=== PATIENT | female | born 2000 | race Caucasian/White ===

== ENCOUNTER 2022-10-04 00:08 | Emergency (ER) | payer OTHER, SELFPAY ==
[2022-10-04 00:11] VITALS: BP 151/85; PULSE 121; RESP 20; TEMP 36.1; O2SAT 100
[2022-10-04] MEDS: ONDANSETRON INJ 4 MG/2 ML VIAL IV PUSH (00:39)
[2022-10-04] MEDS: FAMOTIDINE 20 MG/2 ML VIAL IV PUSH (00:39)
[2022-10-04] MEDS: SODIUM CHLORIDE 0.9% IV 2,000 ML 999 ML IV CONT (00:40)
--- NOTE | 2022-10-04 00:56 | ED.GENADULT ---
HPI - General Adult General Chief complaint: Nausea/Vomiting/Diarrhea Stated complaint: vomiting Time Seen by Provider: 10/04/22 00:17 History of Present Illness HPI narrative: This is a 21-year-old female presenting ED with a chief complaint of nausea vomiting diarrhea. Patient was doing well throughout the day and then acutely at 9:00 p.m. she started to have profuse episodes of nausea vomiting diarrhea. She also has some left upper quadrant abdominal pain that she describes as a burning pain that is nonradiating, 8/10 intensity and constant. She has never experienced pain like this before there are no exacerbating or alleviating factors. Is not associated with fever, chills chest pain difficulty breathing or urinary symptoms. 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 Her last menstrual period was on the . Related Data Allergies Allergy/AdvReac Type Severity Reaction Status Date / Time No Known Allergies Allergy Verified 10/04/22 00:08 [facility] Past Medical History Medical History Migraines Social History Social History Social History: Drinks alcohol occasionally, denies tobacco drug use. Exam Narrative: APPEARANCE: No apparent distress. Patient is pleasant polite during the interview. Head: atraumatic. EYES: EOMI, NOSE: Atraumatic NECK: Trachea midline RESPIRATORY: No increased rate of breathing , clear to auscultation CARDIOVASCULAR: RRR, no peripheral edema ABDOMINAL: Mild tenderness in the epigastric area and left lower quadrant but soft with no guarding or rebound. MUSCULOSKELETAl: No obvious deformities NEURO: Alert. Moving 4/4 extremities SKIN:: Warm, dry. Normal color PSYCHIATRIC: Normal affect Course Vital Signs Vital signs: Vital Signs Temperature 97.0 F L 10/04/22 00:11 Pulse Rate 121 H 10/04/22 00:11 Respiratory Rate 20 10/04/22 00:11 Blood Pressure 151/85 H 10/04/22 00:11 Pulse Oximetry 100 10/04/22 00:11 Oxygen Delivery Room Air 10/04/22 00:11 Temperature 99.2 F 10/04/22 03:03 Pulse Rate 100 10/04/22 04:30 Respiratory Rate 19 10/04/22 04:30 Blood Pressure 123/74 10/04/22 04:30 Pulse Oximetry 96 10/04/22 04:30 Oxygen Delivery Room Air 10/04/22 00:11 Medical Decision Making MDM Narrative Medical decision making narrative: -Presentation: 21-year-old female presenting with acute onset nausea vomiting diarrhea -DDX includes but is not limited to: gastroenteritis, UTI, viral syndrome -Co-morbidities complicating care: migraines -Social determinants of health: patient lives alone, works as an nutrition technician -External Chart Review: none -Hx from independent Sources: none -Discussion of Management/Consultants: none -Independent interpretation of studies: White count was elevated at 15. The rest of her lab work was within normal limits. Dx tests considered but not ordered: CT abdomen pelvis -abdomen is benign. Patient's findings are consistent with gastroenteritis. -Procedures: none -Interventions: 2 L normal saline, Zofran, Pepcid, Compazine, Tylenol -Shared decision making / Disposition: after rehydration and antiemetics the patient was feeling better. She will be discharged home. - ZofranRX Vital Signs Vital Signs: Vital Signs Temperature 97.0 F L 10/04/22 00:11 Pulse Rate 121 H 10/04/22 00:11 Respiratory Rate 20 10/04/22 00:11 Blood Pressure 151/85 H 10/04/22 00:11 Pulse Oximetry 100 10/04/22 00:11 Oxygen Delivery Room Air 10/04/22 00:11 Temperature 99.2 F 10/04/22 03:03 Pulse Rate 100 10/04/22 04:30 Respiratory Rate 19 10/04/22 04:30 Blood Pressure 123/74 10/04/22 04:30 Pulse Oximetry 96 10/04/22 04:30 Oxygen Delivery Room Air 10/04/22 00:11 Lab Data 10/04/22 00:39 10/04/22 00:39 Labs: Lab Results 10/04/22
[2022-10-04 00:57] LABS: Basophils Absolute Auto 0.1 K/mm3 (0.0-0.1); Basophils Percent Auto 0.3 % (0.2-1.2); Eosinophils Absolute Auto 0.1 K/mm3 (0-0.3); Eosinophils Percent Auto 0.7 % (0-4.4); Hematocrit 44.9 % (37.0-47.0); Hemoglobin 15.1 g/dL (12.0-15.0); Immature Granulocyte Absolute 0.06 K/mm3 (0.00-0.031); Immature Granulocyte Percent A 0.4 % (0-0.5); Lymphocytes Absolute Auto 2.07 K/mm3 (0.9-3.2); Lymphocytes Percent Auto 13.6 % (18.3-44.2); Mean Corpuscular HGB Conc 33.6 g/dl (32-36); Mean Corpuscular Volume 89.1 fl (80-100); Mean Platelet Volume 10.2 fl (7.4-10.4); Monocytes Absolute Auto 0.6 K/mm3 (0.1-0.6); Monocytes Percent Auto 3.9 % (2.6-8.5); Neutrophils Absolute Auto 12.3 K/mm3 (1.3-6.7); Neutrophils Percent Auto 81.1 % (45.5-73.1); Platelet Count Result 293 k/mm3 (150-375); Red Blood Count 5.04 M/mm3 (4.2-5.4); Red Cell Distribution Width 12.1 % (11.5-14.5); White Blood Count 15.2 K/mm3 (4.5-10.0)
[2022-10-04 01:19] LABS: Alanine Aminotransferase 25 U/L (6-35); Albumin Level 5.1 g/dL (3.5-5.1); Alkaline Phosphatase 116 U/L (38-126); Anion Gap 11 mmol/L (8-16); Aspartate Amino Transferase 31 U/L (14-36); Bilirubin,Total 0.7 mg/dL (0.2-1.3); Blood Urea Nitrogen 13 mg/dL (7-17); Calcium 9.5 mg/dL (8.4-10.2); Carbon Dioxide 26 mmol/L (22-30); Chloride 100 mmol/L (98-107); Estimated CRCL calculation 109 ml/min; Estimated Glomerular Filt Rate > 60; Glucose 143 mg/dL (65-110); Lipase 76 U/L (23-300); Magnesium 1.9 mg/dL (1.6-2.3); Potassium 3.6 mmol/L (3.4-5.0); Sodium 137 mmol/L (137-145)
[2022-10-04 01:51] VITALS: BP 112/69; PULSE 100; RESP 14; O2SAT 97
--- NOTE | 2022-10-04 02:31 | PC.NURSE ---
pt. blood specimen rejected multiple times via lab. okayed no blood work needed.
[2022-10-04] MEDS: PROCHLORPERAZINE EDISYLATE 10 MG/2 ML VIAL IV PUSH (02:40)
[2022-10-04 03:03] VITALS: BP 100/50; PULSE 98; RESP 16; TEMP 37.3; O2SAT 100
[2022-10-04 04:30] VITALS: BP 123/74; PULSE 100; RESP 19; O2SAT 96
== END 2022-10-04 04:30 | disposition home or self-care (01) ==
PROVIDERS: Emergency Provider Emergency Medicine
DX: K52.9 Noninfective gastroenteritis and colitis, unspecified (principal)
CPT/HCPCS: 36415; 80053; 83690; 83735; 85025; 96361; 96374; 96375; 99284; J0131; J0780; J2405; J7030